=== PATIENT | male | born 1980 | race American Indian/Alaskan Native ===

== ENCOUNTER 2022-06-26 03:34 | Emergency (ER) | payer SELFPAY ==
--- NOTE | 2022-06-26 05:20 | Emergency Department Report ---
ED Psych HPI - General Chief Complaint: Psych Stated Complaint: MH Time Seen by Provider: 06/26/22 04:16 Source: patient Mode of arrival: Ambulatory Limitations: No Limitations - History of Present Illness Initial Comments: 41-year-old male with a past medical history of anxiety and depression and possible PTSD after his mother's murder presents to the hospital with initial complaint of suicidal homicidal ideation. Patient states he resides with his sister and he had a disagreement. Patient does endorse cocaine use and states he relapsed yesterday. Patient does have a history of suicide attempt in the past. He denies wanting to kill anyone else at this time. He denies hallucinations or physical complaints - Related Data Previous Rx's Medication Instructions Recorded Last Taken Type Sertraline [Zoloft] 150 mg PO QDAY #45 06/27/22 Unknown Rx risperiDONE [RisperDAL] 1 mg PO BID #60 tablet 06/27/22 Unknown Rx Allergies Allergy/AdvReac Type Severity Reaction Status Date / Time Penicillins Allergy Unknown Verified 06/26/22 04:04 ED Review of Systems ROS: Stated complaint: MH Other details as noted in HPI Comment: All other systems reviewed and negative ED Past Medical Hx - Social History Smoking Status: Current Every Day Smoker Substance Use Type: Alcohol, Cocaine, Marijuana - Medications Home Medications: Home Medications Medication Instructions Recorded Confirmed Last Taken Type Sertraline [Zoloft] 150 mg PO QDAY #45 06/27/22 Unknown Rx risperiDONE [RisperDAL] 1 mg PO BID #60 tablet 06/27/22 Unknown Rx ED Physical Exam - General Limitations: No Limitations - Other Other exam information: General: No acute distress Head: Atraumatic Eyes: normal appearance ENT: Moist mucous membranes Neck: Normal appearance, no midline tenderness Chest: Clear to auscultation bilaterally CV: Mild tachycardia Abdomen: Soft, normal bowel sounds, nontender, nondistended, no rebound or guarding Back: Normal inspection Extremity: Normal inspection, full range of motion Neuro: Alert O x 3, no facial asymmetry, speech clear, no gross motor sensory deficit Psych: Very talkative, cooperative Skin: No rash ED Course Vital Signs 06/26/22 06/26/22 06/26/22 04:10 04:30 08:08 Temperature 98.4 F 98.6 F 98.2 F Pulse Rate 106 H 75 74 Respiratory 18 16 18 Rate Blood Pressure 120/88 Blood Pressure 119/87 136/88 [Right] O2 Sat by Pulse 98 99 98 Oximetry 06/26/22 06/26/22 06/27/22 08:37 20:00 10:32 Temperature 98.9 F 98 F Pulse Rate 63 73 Respiratory 20 18 Rate Blood Pressure Blood Pressure 121/78 137/89 [Right] O2 Sat by Pulse 98 98 98 Oximetry ED Medical Decision Making - Lab Data Result diagrams: 06/26/22 05:17 06/26/22 05:17 - Medical Decision Making 41-year-old male with suicidal homicidal ideation prior to arrival as well as cocaine use currently on a 1013 and awaiting mental health disposition. medically cleared. Urine pending chart reviewed. pt was d/cathy 06/27. Urine was collected the morning of 06/27 and he was diagnosed with uti. It is unclear based on chart review if pt received antibiotic prescription for UTI. No antibiotics were provided during ED stay. Patient does not have a functioning number noted on demographics for contact Critical care attestation.: If time is entered above; I have spent that time in minutes in the direct care of this critically ill patient, excluding procedure time. ED Disposition Clinical Impression: Suicidal ideation, Cocaine abuse, UTI (urinary tract infection) Disposition: HOME / SELF CARE / HOMELESS Is pt being admited?: No Condition: Stable Additional Instructions: Professional and Agency Contacts To help [facility](16/06) [place] Crisis Line: Suicide Prevention Line: Crisis Text Line: Text START to 595919 Emergency: 911 Outpatient COMM[facility] Behavioral Health Resources: [place]: [facility] [address] [place], [place] [address] [place]: [facility] - [facility] [address] [place] [address] [place]: [facility] - [address] [place] [address] Friday thru Friday - 8am - 5pm [place]: [facility] Service Address: [address], [place] [address] [facility] Address: [address], [place] [address] Friday thru Friday- 7am-2pm [facility] Address: [address], [place] [address] Friday thru Friday: 8:30AM-5PM Prescriptions: risperiDONE [RisperDAL] 1 mg PO BID #60 tablet Sertraline [Zoloft] 150 mg PO QDAY #45 Referrals: PRIMARY CARE, [Primary Care Provider] - 3-5 Days
[2022-06-26 05:43] LABS: Basophils % (Auto) 0.4 % (0.0-1.8); Eosinophils % (Auto) 0.1 % (0.0-4.3); Hemoglobin 15.1 gm/dl (11.8-15.2); Lymphocytes # (Auto) 1.4 K/mm3 (1.2-5.4); Lymphocytes % (Auto) 13.4 % (13.4-35.0); Mean Corpuscular HGB Conc 34 % (32-34); Mean Corpuscular Volume 93 fl (84-94); Monocytes # (Auto) 0.5 K/mm3 (0.0-0.8); Monocytes % (Auto) 5.2 % (0.0-7.3); Platelet Count 232 K/mm3 (140-440); Red Blood Count 4.83 M/mm3 (3.65-5.03); Red Cell Distribution Width 13.1 % (13.2-15.2)
[2022-06-26 05:47] LABS: BUN/Creatinine Ratio 22; Blood Urea Nitrogen 22 mg/dL (9-20); Calcium 9.6 mg/dL (8.4-10.2); Hemolysis Index 6
[2022-06-26] MEDS ORDERED: ZIPRASIDONE MESYLATE 20 MG VIAL IM ONE ×2 (09:08→09:10)
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
[2022-06-26] MEDS: ARIPiprazole 5 MG TAB PO SCH (15:21)
[2022-06-26] MEDS: DIVALPROEX DR 125 MG TAB PO SCH ×2 (15:21→22:29)
[2022-06-26] MEDS ORDERED: traZODone 50 MG TAB PO SCH (22:00)
[2022-06-27 09:08] LABS: Amphetamine Screen,Urine Negative; Benzodiazepines Screen,Urine Negative; Methadone Screen,Urine Negative; Opiate Screen,Urine Negative
[2022-06-27 09:31] LABS: Cannabinoid Screen,Urine Positive; Cocaine Screen,Urine Positive
[2022-06-27 09:55] LABS: Hyaline Casts,Urine 1 /LPF; Mucus,Urine 3+ /HPF
[2022-06-27] MEDS: ARIPiprazole 5 MG TAB PO SCH (09:57)
[2022-06-27] MEDS: DIVALPROEX DR 125 MG TAB PO SCH (09:57)
[2022-06-27 10:01] LABS: Bilirubin,Urine Negative (Negative); Blood,Urine Negative (Negative); Color,Urine AMBER (Yellow)
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
[2022-06-27 10:34] VITALS: BP 137/89
== END 2022-06-27 12:38 | disposition home or self-care (01) ==
LOC: EEVIPCON 03:34 → ED 03:34
DX: R45.851 Suicidal ideations (principal); F14.10 Cocaine abuse, uncomplicated; N39.0 Urinary tract infection, site not specified; Z88.0 Allergy status to penicillin; F17.200 Nicotine dependence, unspecified, uncomplicated; Z20.822 Contact with and (suspected) exposure to COVID-19
CPT/HCPCS: 36415; 80048; 80307; 81001; 85025; 87086; 96372; 99284; J3486; U0003; 80320; G0480

== ENCOUNTER → 2022-08-23 | Emergency (ER) | payer SELFPAY ==
--- NOTE | 2022-08-23 19:12 | Emergency Department Report ---
ED General Adult HPI - General Chief complaint: Psych Stated complaint: SI Time Seen by Provider: 08/23/22 17:54 Source: patient Mode of arrival: Ambulatory Limitations: No Limitations - History of Present Illness Initial comments: The patient presents to the emergency department with a chief complaint of suicidal ideation. Patient states that he has had suicidal thoughts for the last couple of days with a plan of walking into oncoming traffic. -: unknown Severity scale (0 -10): 0 Consistency: constant Improves with: none Worsens with: none Associated Symptoms: denies other symptoms Treatments Prior to Arrival: none - Related Data Previous Rx's Medication Instructions Recorded Last Taken Type Sertraline [Zoloft] 150 mg PO QDAY #45 06/27/22 Unknown Rx risperiDONE [RisperDAL] 1 mg PO BID #60 tablet 06/27/22 Unknown Rx Allergies Allergy/AdvReac Type Severity Reaction Status Date / Time Penicillins Allergy Unknown Verified 08/23/22 16:54 ED Review of Systems ROS: Stated complaint: SI Other details as noted in HPI Comment: All other systems reviewed and negative Constitutional: denies: chills, fever Eyes: denies: eye pain, eye discharge, vision change ENT: denies: ear pain, throat pain Respiratory: denies: cough, shortness of breath, wheezing Cardiovascular: denies: chest pain, palpitations Endocrine: no symptoms reported Gastrointestinal: denies: abdominal pain, nausea, diarrhea Genitourinary: denies: urgency, dysuria Musculoskeletal: denies: back pain, joint swelling, arthralgia Skin: denies: rash, lesions Neurological: denies: headache, weakness, paresthesias Psychiatric: suicidal thoughts. denies: anxiety, depression, homicidal thoughts Hematological/Lymphatic: denies: easy bleeding, easy bruising ED Past Medical Hx - Past Medical History Previous Medical History?: Yes Hx Psychiatric Treatment: Yes (DEPRESSION) - Social History Smoking Status: Current Every Day Smoker Substance Use Type: Marijuana - Medications Home Medications: Home Medications Medication Instructions Recorded Confirmed Last Taken Type Sertraline [Zoloft] 150 mg PO QDAY #45 06/27/22 Unknown Rx risperiDONE [RisperDAL] 1 mg PO BID #60 tablet 06/27/22 Unknown Rx ED Physical Exam - General Limitations: No Limitations General appearance: alert, in no apparent distress - Head Head exam: Present: atraumatic, normocephalic - Eye Eye exam: Present: normal appearance, PERRL, EOMI - ENT ENT exam: Present: mucous membranes moist - Neck Neck exam: Present: normal inspection - Respiratory Respiratory exam: Present: normal lung sounds bilaterally. Absent: respiratory distress - Cardiovascular Cardiovascular Exam: Present: regular rate, normal rhythm. Absent: systolic murmur, diastolic murmur, rubs, gallop - GI/Abdominal GI/Abdominal exam: Present: soft, normal bowel sounds. Absent: distended, tenderness - Rectal Rectal exam: Present: deferred - Extremities Exam Extremities exam: Present: normal inspection - Back Exam Back exam: Present: normal inspection - Neurological Exam Neurological exam: Present: alert, oriented X3, CN II-XII intact. Absent: motor sensory deficit - Psychiatric Psychiatric exam: Present: normal affect, normal mood - Skin Skin exam: Present: warm, dry, intact, normal color. Absent: rash ED Course Vital Signs 08/23/22 08/23/22 08/23/22 16:52 17:23 21:07 Temperature 97.9 F Pulse Rate 90 94 H Respiratory 16 18 Rate Blood Pressure 120/80 114/62 [Left] O2 Sat by Pulse 98 98 96 Oximetry Critical care attestation.: If time is entered above; I have spent that time in minutes in the direct care of this critically ill patient, excluding procedure time. ED Disposition Clinical Impression: Suicidal ideation Disposition: [address] [place] [address] Is pt being admited?: No Does the pt Need Aspirin: No Condition: Stable
[2022-08-23 21:08] VITALS: BP 114/62
== END ==
LOC: ED 16:48
DX: R45.851 Suicidal ideations (principal); F17.200 Nicotine dependence, unspecified, uncomplicated; F12.90 Cannabis use, unspecified, uncomplicated
CPT/HCPCS: 99285